=== PATIENT | male | born 1985 | race Caucasian/White ===

== ENCOUNTER 2018-09-23 12:17 | Emergency (ER) | payer OTHER ==
[2018-09-23] MEDS ORDERED: Lidocaine 1% (PF) 30 ML VIAL ONE (12:25)
[2018-09-23] MEDS ORDERED: Sodium Chloride 0.9% 1,000 ML ONE (12:30)
[2018-09-23] MEDS ORDERED: Ondansetron PF 4 MG/2 ML Vial ONE (12:39)
[2018-09-23] MEDS ORDERED: Adacel (T-DAP) 0.5 ML SYRINGE ONE (13:40)
[2018-09-23] MEDS ORDERED: Bacitracin Zinc 1 Packet ONE (13:41)
--- NOTE | 2018-09-23 13:48 | RAD ---
LEFT RING FINGER: Date: 09/23/18 HISTORY: Trauma to finger. FINDINGS: There is soft tissue injury and a tuft fracture of the distal phalanx. IMPRESSION: Tuft fracture of the distal phalanx of the ring finger. POS: [facility]
[2018-09-23] MEDS ORDERED: Cephalexin 250 MG CAP ONE (13:49)
== END 2018-09-23 14:00 | disposition home or self-care (01) ==
LOC: NAV ERS 12:17
DX: S61.315A Laceration without foreign body of left ring finger with damage to nail, initial encounter (principal); Z79.899 Other long term (current) drug therapy; W11.XXXA Fall on and from ladder, initial encounter
CPT/HCPCS: 12002; 90471; 90715; 93005; 96361; 96374; J2001; J2405; J7050; Q4049

== ENCOUNTER 2022-04-11 14:26 | Outpatient (CLI) | payer OTHER | END 2022-04-11 14:27 | disposition home or self-care (01) | LOC: NAV RAD 14:26 | PROVIDERS: ATTEND Family Medicine | DX: R05.9 Cough, unspecified (principal) | CPT/HCPCS: 71046 ==